=== PATIENT | female | born 1970 | race Caucasian/White ===

== ENCOUNTER 2016-12-04 19:45 | Emergency (ER) | payer BC, SELFPAY ==
[2016-12-04] MEDS ORDERED: Sodium Chloride 0.9% 10 ML Syringe FLUSH PRN (20:12)
[2016-12-04] MEDS: Nitroglycerin 0.4 MG Tab.SL SL PRN ×2 (20:12→20:17)
[2016-12-04 20:20] VITALS: BP 148/84
[2016-12-04] MEDS ORDERED: Alum Hydroxide/Mag Hydroxide 15 ML, Lidocaine 2% 15 ML PO ONE ×2 (20:27)
[2016-12-04] MEDS ORDERED: Omeprazole 20 MG Cap.CR PO ONE (20:50)
--- NOTE | 2016-12-05 02:12 | ER ---
DATE SEEN: 12/04/2016 TIME SEEN: 2030 hours. CHIEF COMPLAINT: Chest pain. HISTORY OF PRESENT ILLNESS: A 46-year-old female complaining of pain in the chest for many months, but in the last couple days, it has gotten worse and described initially as what she thought was heartburn or indigestion. She took Pepcid with no relief. It associated with some shortness of breath and radiating to the back. REVIEW OF SYSTEMS: No headaches. Has chronic abdominal pain. No weight changes, fever, or chills. ALLERGIES: Please see the nurse's notes. SOCIAL HISTORY: Smokes occasionally. Drinks every night. FAMILY HISTORY: Grandmother has had heart problems. No premature coronary artery disease in the family. MEDICATIONS: Please see the nurse's notes. PHYSICAL EXAMINATION: VITAL SIGNS: Temperature is 98.1, blood pressure 145/95, oxygenation 100% on room air, and respiratory rate is 14. EARS, NOSE, AND THROAT: Negative. HEAD: Normal size. NECK: Supple. CHEST: Clear. CARDIOVASCULAR: Normal. ABDOMEN: Soft. NEUROLOGIC: No focal findings. MENTAL STATUS: Alert. LABORATORY DATA: Troponin, BNP, and CBC were all negative. Chest x-ray normal. EKG, no ST changes. IMPRESSION: 1. Atypical chest pain. 2. Possible gastroesophageal reflux disease. ED COURSE AND PLAN: The patient got nitroglycerin twice with minimal relief. GI cocktail helped her to belch and she felt much better. I discharged her home on omeprazole 20 mg a day. I recommended alcohol cessation. Follow up with Corrie Conteh tomorrow morning and have a stress test within 3 to 5 days. Return to the ED with worsening symptoms. /[id number] KATE/JEZ
--- NOTE | 2016-12-05 11:33 | CR ---
INDICATION: Chest pain. CHEST: An AP upright portable view of the chest 12/04/2016 was obtained. No comparisons are available. The heart appeared normal in size and shape. There may be some minimal calcification in the arch of the aorta. Overlying EKG leads are noted. An active infiltrate or effusion was not identified. Lungs appear to be slightly hyperaerated. IMPRESSION: 1. No acute process. 2. Minimal ASD aorta. 3. Question hyperaeration. The possibility of COPD would be a consideration. MTDD
== END 2016-12-04 21:00 | disposition home or self-care (01) ==
LOC: FB.ED 19:45
DX: R07.89 Other chest pain (principal)
CPT/HCPCS: 36415; 71010; 80048; 83880; 84484; 85027; 93005; 99285; A9270; J7050

== ENCOUNTER 2016-12-05 22:19 | Emergency (ER) | payer BC, SELFPAY ==
[2016-12-05] MEDS ORDERED: Alum Hydroxide/Mag Hydroxide 15 ML, Lidocaine 2% 15 ML PO ONE ×2 (22:50)
[2016-12-05] MEDS ORDERED: Sodium Chloride 0.9% 10 ML Syringe FLUSH PRN (22:55)
[2016-12-05] MEDS ORDERED: Ondansetron 4 MG/2 ML SDV IVPUSH ONE ×2 (22:55→23:33)
--- NOTE | 2016-12-05 22:58 | EDM.PDOC ---
ED HISTORY OF PRESENT ILLNESS - General Chief Complaint: Chest Pain Stated Complaint: CHEST PAIN Time Seen by Provider: 12/05/16 22:30 Source: Reports: Patient, Old records History Limitations: Reports: No limitations - History of Present Illness INITIAL COMMENTS - FREE TEXT/NARRATIVE: Violette returns to [facility] ED with ongoing sxs of retrosternal sharp chest pains that radiate to the back, ED note from December 04 reviewed. Pains have occurred over the past 3 days, possibly coinciding with Doxycycline for treatment of a cyst of the sinuses. She is experiencing some nausea and emeses of clear fluids. There is no melba SOB, cough, pleurisy, or rash. Of interest, her sxs improved following a GI cocktail. She has also experienced dyspeptic sxs for several months. - Related Data Allergies/ADRs: Allergies Allergy/AdvReac Type Severity Reaction Status Date / Time bupropion HCl Allergy Mild Confusion Verified 12/05/16 23:24 [From Wellbutrin] cephalexin Allergy Hives Verified 12/05/16 23:24 ciprofloxacin [From Cipro] Allergy Anaphylactic Verified 12/05/16 23:24 Shock ciprofloxacin HCl Allergy Anaphylactic Verified 12/05/16 23:24 [From Cipro] Shock ibuprofen Allergy Anaphylactic Verified 12/05/16 23:24 Shock metronidazole [From Flagyl] Allergy Hives Verified 12/05/16 23:24 Penicillins Allergy Hives Verified 12/05/16 23:24 Sulfa (Sulfonamide Allergy Hives Verified 12/05/16 23:24 Antibiotics) escitalopram oxalate AdvReac Mild Confusion Verified 12/05/16 23:24 [From Lexapro] topiramate [From Topamax] AdvReac Mild Confusion Verified 12/04/16 19:59 acetaminophen [From Vicodin] AdvReac Hives Verified 12/04/16 19:59 fluoxetine HCl [From Prozac] AdvReac HALLUCINATI Verified 12/05/16 23:24 NS hydrocodone [From Vicodin] AdvReac Hives Verified 12/04/16 19:59 Home Meds: Home Meds Albuterol [Proventil HFA] 2 puff INH QID PRN 12/18/14 [History] Levothyroxine 75 mcg PO ACBREAKFAST 12/18/14 [History] Famotidine [Pepcid AC] 20 mg PO DAILY 12/04/16 [History] Past Medical History Respiratory History: Reports: Asthma, Other (see below) Other Respiratory History: Uses an inhaler PRN. Gastrointestinal History: Reports: Other (see below) Other Gastrointestinal History: Hx of gastric problems. Endocrine/Metabolic History: Reports: Hypothyroidism Other Endocrine/Metabolic History: Takes Levothyroxine. Social & Family History - Tobacco Use Smoking Status *Q: Current Some Day Smoker Years of Tobacco use: 30 Packs/Tins Daily: 0.5 - Caffeine Use Caffeine Use: Reports: Coffee, Soda - Alcohol Use Days Per Week of Alcohol Use: 2 Number of Drinks Per Day: 5 Total Drinks Per Week: 10 - Recreational Drug Use Recreational Drug Use: No ED ROS GENERAL - Review of Systems Review Of Systems: See Below Constitutional: Reports: malaise, decreased appetite HEENT: Reports: Sinus problem Respiratory: Reports: No Symptoms Cardiovascular: Reports: Chest pain Endocrine: Reports: no symptoms GI/Abdominal: Reports: Nausea, Vomiting : Reports: no symptoms Musculoskeletal: Reports: no symptoms Skin: Reports: no symptoms Neurological: Reports: No Symptoms Psychiatric: Reports: No symptoms Hematologic/Lymphatic: Reports: no symptoms Immunologic: Reports: no symptoms ED EXAM, GENERAL - Physical Exam Exam: See Below Exam Limited By: No limitations General Appearance: alert, WD/WN, anxious, moderate distress Eye Exam: bilateral eye: normal inspection Ears: normal external exam Nose: normal inspection Throat/Mouth: Normal inspection, Normal lips, Normal gums, Normal oropharynx, Normal voice, No airway compromise Head: normocephalic Neck: normal inspection, supple, non-tender, full range of motion Respiratory/Chest: no respiratory distress, lungs clear, normal breath sounds, no accessory muscle use, chest non-tender Cardiovascular: normal peripheral pulses, regular rate, rhythm, no edema, no gallop, no JVD, no murmur, no rub GI/Abdominal: normal bowel sounds, soft, non tender, no organomegaly, no distention, no mass (Female) Exam: Deferred Rectal (Female) Exam: Deferred Back Exam: normal inspection, full range of motion Extremities: normal inspection Neurological: alert, oriented, CN II-XII intact, normal cognition, normal gait, no motor/sensory deficits Psychiatric: normal affect, anxious Skin Exam: Warm, Dry Lymphatic: no adenopathy Course - Vital Signs Text/Narrative:: Following admission to the [facility] ED, a repeat 12 lead ekg was obtained, noting NSR, some low voltage accross precordial leads, unchanged from 12/04/16; the CBC and ESR were normal for age, d-dimer normal also. An IV was inserted into the RUE, and Zofran 4 mg x 2 administered for nausea. A GI Cocktail was administered with minor improvement in sxs. I subsequently administered 1L of NS , and Dilaudid 2 mg IV with remission of chest pain sxs. Clinically, symptoms appeared to be esophageal in origin, and may be aggravated by the doxycycline. She will discontinue this prescription. Last Recorded V/S: Last Vital Signs Temp 36.3 C 12/06/16 00:30 Pulse 82 12/06/16 00:48 Resp 17 12/06/16 00:48 BP 157/98 H 12/06/16 00:48 Pulse Ox 100 12/06/16 00:48 - Orders/Labs/Meds Orders: Active Orders 24 hr Category Date Time Status EKG Documentation Completion [RC] ASDIRECTED Care 12/05/16 22:47 Active Sodium Chloride 0.9% [Normal Saline] 1,000 ml Med 12/05/16 23:00 Active IV ASDIRECTED Sodium Chloride 0.9% [Saline Flush] Med 12/05/16 22:55 Active 10 ml FLUSH ASDIRECTED PRN Peripheral IV Insertion Adult [OM.PC] Routine Oth 12/05/16 22:55 Ordered EKG 12 Lead [EK] Routine Ther 12/05/16 22:46 Ordered Medication Orders Sodium Chloride (Normal Saline) 1,000 mls @ 150 mls/hr IV ASDIRECTED ADAN Last Admin: 12/05/16 23:05 Dose: 150 mls/hr Sodium Chloride (Saline Flush) 10 ml FLUSH ASDIRECTED PRN PRN Reason: Keep Vein Open Last Admin: 12/05/16 23:09 Dose: 10 ml Labs: Laboratory Tests 12/05/16 12/05/16 Range/Units 22:50 22:50 WBC 5.9 (4.5-12.0) X10-3/uL RBC 4.24 (3.23-5.20) x10(6)uL Hgb 13.4 (11.5-15.5) g/dL Hct 39.1 (30.0-51.3) % MCV 92.3 (80-96) fL MCH 31.7 (27.7-33.6) pg MCHC 34.4 (32.2-35.4) g/dL RDW 11.7 (11.5-15.5) % Plt Count 278 (125-369) X10(3)uL MPV 7.9 (7.4-10.4) fL Neut % (Auto) 51.5 (46-82) % Lymph % (Auto) 36.1 (13-37) % Dooly % (Auto) 8.1 (4-12) % Eos % (Auto) 4 (1.0-5.0) % Baso % (Auto) 1 (0-2) % Neut # (Auto) 3.1 (1.6-8.3) # Lymph # (Auto) 2.1 (0.6-5.0) # Dooly # (Auto) 0.5 (0.0-1.3) # Eos # (Auto) 0.2 (0.0-0.8) # Baso # (Auto) 0.0 (0.0-0.2) # ESR 15 (0-20) mm/hr D-Dimer, Quantitative 184 (100-400) ng/mL Meds: Medications Generic Name Dose Route Start Last Admin Trade Name Freq PRN Reason Stop Dose Admin Sodium Chloride 1,000 mls @ 150 mls/hr 12/05/16 23:00 12/05/16 23:05 Normal Saline IV 150 mls/hr ASDIRECTED ADAN Administration Sodium Chloride 10 ml 12/05/16 22:55 12/05/16 23:09 Saline Flush FLUSH 10 ml ASDIRECTED PRN Administration Keep Vein Open Discontinued Medications Generic Name Dose Route Start Last Admin Trade Name Freq PRN Reason Stop Dose Admin Al Hydroxide/Mg Hydroxide 15 0 ml 12/05/16 22:50 12/05/16 23:09 ml/ Lidocaine HCl 15 ml PO 12/05/16 22:51 15 ml ONETIME ONE Administration Hydromorphone HCl 2 mg 12/05/16 23:33 12/05/16 23:53 Dilaudid IVPUSH 12/05/16 23:34 2 mg ONETIME ONE Administration Ondansetron HCl 4 mg 12/05/16 22:55 12/05/16 23:06 Zofran IVPUSH 12/05/16 22:56 4 mg ONETIME ONE Administration Ondansetron HCl 4 mg 12/05/16 23:33 12/05/16 23:48 Zofran IVPUSH 12/05/16 23:34 4 mg ONETIME ONE Administration Departure - Departure Time of Disposition: 01:00 Disposition: Home, Self-Care 01 Clinical Impression: Atypical chest pain, Esophagitis Referrals: Corrie Conteh NP [Primary Care Provider] - Forms: ED Department Discharge Additional Instructions: Take Omeprazole 2 time a day. No coffe, tea and Doxycycline. See primary care provider if symptoms persists. - Problem List & Annotations (1) Atypical chest pain SNOMED Code(s): 234949730 Code(s): R07.89 - OTHER CHEST PAIN Status: Acute Current Visit: Yes Annotation/Comment:: Atypical chest pain with features of esophagodynia. A primary cardiac disorder such as pericarditis or pulmonary disorder such as PE are not suspected at this time. (2) Esophagitis SNOMED Code(s): 49887590 Code(s): K20.9 - ESOPHAGITIS, UNSPECIFIED Status: Acute Current Visit: Yes Annotation/Comment:: I advised Violette to stop Doxycycline, increase Prilosec 20 mg to bid, advised no NSAIDs, caffeine, or smoking, and provided a note for medical leave from work tomorrow. - Problem List Review Problem List Initiated/Reviewed/Updated: Yes - My Orders Last 24 Hours: My Active Orders 12/05/16 22:46 EKG 12 Lead [EK] Routine 12/05/16 22:47 EKG Documentation Completion [RC] ASDIRECTED 12/05/16 22:55 Sodium Chloride 0.9% [Saline Flush] 10 ml FLUSH ASDIRECTED PRN Peripheral IV Insertion Adult [OM.PC] Routine 12/05/16 23:00 Sodium Chloride 0.9% [Normal Saline] 1,000 ml IV ASDIRECTED - Assessment/Plan Last 24 Hours: My Active Orders 12/05/16 22:46 EKG 12 Lead [EK] Routine 12/05/16 22:47 EKG Documentation Completion [RC] ASDIRECTED 12/05/16 22:55 Sodium Chloride 0.9% [Saline Flush] 10 ml FLUSH ASDIRECTED PRN Peripheral IV Insertion Adult [OM.PC] Routine 12/05/16 23:00 Sodium Chloride 0.9% [Normal Saline] 1,000 ml IV ASDIRECTED Plan: Follow up with PCP.
[2016-12-05] MEDS ORDERED: Sodium Chloride 0.9% 1,000 ML IV SCH (23:00)
[2016-12-05] MEDS ORDERED: HYDROmorphone 2 MG/ML SDV IVPUSH ONE (23:33)
[2016-12-06 01:54] VITALS: BP 157/98
== END 2016-12-06 00:55 | disposition home or self-care (01) ==
LOC: FB.ED 22:19
DX: R07.89 Other chest pain (principal); K20.9 Esophagitis, unspecified; J45.909 Unspecified asthma, uncomplicated; E03.9 Hypothyroidism, unspecified; F17.210 Nicotine dependence, cigarettes, uncomplicated; Z88.8 Allergy status to other drugs, medicaments and biological substances; Z88.2 Allergy status to sulfonamides; Z88.0 Allergy status to penicillin; Z88.1 Allergy status to other antibiotic agents; Z79.899 Other long term (current) drug therapy; Z88.6 Allergy status to analgesic agent
CPT/HCPCS: 36415; 85025; 85379; 85651; 93005; 96361; 96374; 96375; 96376; 99284; A9270; J1170; J2405; J7040; J7050